=== PATIENT | female | born 1965 | race Caucasian/White ===

== ENCOUNTER 2018-08-09 08:35 | Day surgery (SDC) | payer OTHER ==
[2018-08-08 14:33] VITALS: BMI 26.6
[2018-08-09 09:49] VITALS: TEMP 98
[2018-08-09 10:23] VITALS: PULSE 55
[2018-08-09 10:36] VITALS: BP 113/70
--- NOTE | 2018-08-10 16:25 | PATH ---
Surgical Pathology Report Patient Name: MATTI BALTAZAR [facility]. Rec. #: [id number] /Age/Gender: 1965 (Age: 53) / F Account: [id number] Location: [facility]-ENDOSCOPY Taken: 08/09/2018 Received: 08/09/2018 Reported: 08/10/2018 Physicians: Brnedan Haddad M.D. Specimen(s) Received A: BX CECUM POLYP B: BX TRANSVERSE COLON POLYP Clinical History Colon polyp Final Diagnosis A. CECUM POLYP, BIOPSY: POLYPOID COLONIC MUCOSA WITH SURFACE HYPERPLASTIC CHANGE. B. TRANSVERSE COLON POLYP, BIOPSY: POLYPOID COLONIC MUCOSA WITH REACTIVE LYMPHOID AGGREGATE. Electronically Signed Jean Claude Black M.D. Gross Description A. Received in formalin, labeled "biopsy polyp from cecum" is a zavala, irregular portion of soft tissue measuring 0.4 cm. in greatest dimension. The specimens are submitted in toto in one cassette. B. Received in formalin, labeled "biopsy polyp transverse colon" are 2 zavala, irregular portions of soft tissue measuring 0.4 cm. in greatest dimension. The specimens are submitted in toto in one cassette. __ KWS/08/09/2018 sulki/08/09/2018
== END 2018-08-09 10:40 | disposition home or self-care (01) ==
LOC: JASU-ENDO 08:35
PROVIDERS: ATTEND Internal Medicine Gastroenterology
PROC: 0DBL8ZX Excision of Transverse Colon, Via Natural or Artificial Opening Endoscopic, Diagnostic (ICD-10-PCS; 2018-08-09)
PROC: 0DBH8ZX Excision of Cecum, Via Natural or Artificial Opening Endoscopic, Diagnostic (ICD-10-PCS; principal; 2018-08-09 09:00)
DX: Z12.11 Encounter for screening for malignant neoplasm of colon (principal); Z86.010 Personal history of colon polyps; D12.0 Benign neoplasm of cecum; D12.3 Benign neoplasm of transverse colon; K57.30 Diverticulosis of large intestine without perforation or abscess without bleeding